=== PATIENT | female | born 1995 | race Caucasian/White ===

== ENCOUNTER → 2018-09-30 | Emergency (ER) | payer SELFPAY ==
[~2018-09-30] VITALS: Ht 162.6 cm; Wt 86.6 kg
[2018-09-30 21:49] VITALS: BP 129/64; PULSE 62; RESP 18; Ht 162.6 cm; Wt 86.6 kg
== END | disposition left against medical advice (07) ==
LOC: FTE 21:42
DX: Z53.21 Procedure and treatment not carried out due to patient leaving prior to being seen by health care provider (principal)